=== PATIENT | male | born 1965 | race Caucasian/White ===

== ENCOUNTER → 2017-01-30 | Outpatient (CLI) | payer MEDICARE, OTHER ==
[~2017-01-30] MED LIST: ADVAIR 2501 DISK W/D PO; ALBUTEROL17 GM INH; ASPIRIN EC81 M1 PO; ASPIRIN PO; ATARAX PO; ATENOLOL PO; BACITRACIN15 GM OINT TOP; BUMEX1 MG PO; COUMADIN PO; COUMADIN6 MG PO; COUMADIN7.5 MG PO; DESYREL50 MG PO; DOXYCYCLINE HY100 M1 PO; GLUCOPHAGE500 M1 PO; LIPITOR PO; LISINOPRIL PO; LOPID600 MG PO; LOPRESSOR PO; LORTAB 7.5-5001 TAB PO; METFORMIN HCL500 M1 PO; MOBIC15 MG PO; MUCINEX DM1 TAB.SR . PO; MULTI-VITAMIN1 TAB PO; NEURONTIN100 MG PO; NEURONTIN300 MG PO; NITROGYLCERIN SUBLINGUAL; NITROSTAT0.4 MG SL; NO MEDICATIONS; NORCO 10-325 TA1 TAB PO; OMEPRAZOLE20 M1 PO; PAXIL PO; PHARMACY; PHENERGAN SUPP25 MG PR; PRILOSEC PO; PROMETHAZINE-D240 ML PO; REQUIP0.25 MG PO; ZESTRIL5 MG PO; ZOCOR20 MG PO
--- NOTE | ~2017-01-30 | CT71 ---
[facility] A Service [facility] RADIOLOGY TEXT RESULTS PATIENT: BRENT ARECHIGA LOCATION: [facility] : 61 UNIT #: [id number] AGE: [address]: SHAKILA MCKEON SEX: M ORDER DR: [id number] [place] [id number] O MR#: [id number] Acc #: [id number] NAME: BRENT ARECHIGA : 1965 SEX: M STUDY DATE/TIME: 01/30/2017 12:50 UNIT: [facility] ROOM: STUDY DESCRIPTION: CT Head Wo Contrast Attending Physician: Shakila Mckeon M.D. Referring Physician: Shakila Mckeon M.D. Ordering Physician: Geeta Sunshine M.D. Primary Care Physician: Geeta Sunshine M.D. MEDICAL IMAGING REPORT This report is preliminary unless electronic signature is present. EXAM CT scan of the head without contrast 01/30/2017 HISTORY Left sided headaches for 1 month that started when the patient stopped Warfarin. COMPARISON STUDIES 09/20/2005 TECHNIQUE Axial noncontrast images were obtained from the skull base to the vertex. This CT exam was performed with one or more of the following radiation dose reduction techniques: automatic exposure control, adjustment of mA and/or kV according to patient size, and iterative reconstruction. FINDINGS Ventricular size and configuration are normal. There is no evidence of acute infarct or hemorrhage. There are no extraaxial fluid collections. No mass lesion or mass effect is seen. There are no skull fractures. IMPRESSION Normal noncontrast head CT. Dictated by... Guillermo Acosta M.D. THIS IS AN ELECTRONICALLY VERIFIED REPORT Guillermo Acosta M.D. at 01/30/2017 4:54 PM SHIVA/heidi [facility] A Service [facility] RADIOLOGY TEXT RESULTS PATIENT: BRENT ARECHIGA LOCATION: [facility] : 61 UNIT #: [id number] AGE: [address]: SHAKILA MCKEON SEX: M ORDER DR: TD: 01/30/2017 16:23 JOB #: [id number] MEDICAL IMAGING REPORT
== END | disposition home or self-care (01) ==
LOC: SCT 12:12
DX: R51 Headache (principal)
CPT/HCPCS: 70450

== ENCOUNTER 2017-05-12 11:28 | Emergency (ER) | payer MEDICARE, OTHER ==
--- NOTE | ~2017-05-12 | CR72 ---
[facility] A Service of [facility] & [facility] RADIOLOGY TEXT RESULTS PATIENT: BRENT ARECHIGA LOCATION: [facility] : 61 UNIT #: [id number] AGE: [address]: Alisson Hobson MD SEX: M ORDER DR: [id number] [facility] [address] [place], [place] [address] [id number] E MR#: [id number] Acc #: [id number] NAME: BRENT ARECHIGA. : 1965 SEX: M STUDY DATE/TIME: 05/12/2017 12:14 UNIT: [facility] ROOM: STUDY DESCRIPTION: CR Chest Single View Portable Attending Physician: Alisson Hobson M.D. Ordering Physician: Alisson Hobson M.D. Primary Care Physician: Geeta Sunshine M.D. MEDICAL IMAGING REPORT This report is preliminary unless electronic signature is present EXAM Portable chest INDICATION Chest pain today, shortness of breath, defibrillator firing twice. COMPARISON 11/20/2015 FINDINGS There is abnormal rounded soft tissue attenuation in the right hilum concerning for a mass or lymphadenopathy. This is new since the study from 2014. Further evaluation with a contrast enhanced chest CT is recommended. Heart size is normal. ICD. Prior valve repair. IMPRESSION Abnormal study with abnormal rounded soft tissue density in the right hilum very concerning for underlying mass or lymphadenopathy. Further evaluation with chest CT with contrast is recommended. Dictated by... Lon Duckworth M.D. THIS IS AN ELECTRONICALLY VERIFIED REPORT Lon Duckworth M.D. at 05/12/2017 6:07 PM [place] TD: 05/12/2017 15:49 JOB #: [id number] MEDICAL IMAGING REPORT Page 1 of 1 COPY
--- NOTE | ~2017-05-12 | EKG ---
PATIENT: BRENT ARECHIGA UNIT #: [id number] Ventricular Rate: 100 BPM Atrial Rate: 100 BPM P-R Interval: 182 ms QRS Duration: 98 ms Q-T Interval: 374 ms QTC Calculation(Bezet): 482 ms P Marine: 69 degrees Calculated R Marine: 56 degrees Calculated T Marine: 96 degrees Diagnosis Line: Normal sinus rhythm Diagnosis Line: Consider prior Inferior infarct , age Diagnosis Line: undetermined Diagnosis Line: Poor R wave progression questionable lead position Diagnosis Line: or body habitus Diagnosis Line: Abnormal ECG Diagnosis Line: No previous ECGs available Diagnosis Line: Confirmed by SINGH JETER MD ([id number]) on Diagnosis Line: 05/12/2017 10:46:24 PM INTERPRETING MD: JASS
[2017-05-12 12:38] LABS: BASOPHIL# 0.1 X10e3 (0-0.3); BASOPHIL% 0.8 % (0-2.5); EOSINOPHIL# 0.8 X10e3 (0-0.7); EOSINOPHIL% 5.8 % (0.0-7.0); HEMATOCRIT 45.3 % (38.0-50.0); HEMOGLOBIN 14.4 gm/dL (13.0-16.0); LYMPHOCYTE% 21.9 % (17.0-45.0); MEAN CELL VOLUME 88.9 FL (83-96); MEAN CORPUSCULAR HEMOGLOBIN 28.2 PG (28-34); MEAN CORPUSCULAR HGB CONC 31.7 g/dL (30-36); MEAN PLATELET VOLUME 8.4 FL (6.5-11.5); MONOCYTE# 1.2 X10e3 (0-1.0); MONOCYTE% 8.6 % (3.0-12.0); NEUTROPHIL# 8.5 X10e3 (1.5-7.1); NEUTROPHIL% 62.9 % (40-75); PLATELET COUNT 324 X10e3 (140-420); RED CELL DISTRIBUTION WIDTH 15.2 % (11.0-15.5); WHITE BLOOD COUNT 13.5 X10e3 (4.0-10.5)
[2017-05-12 12:40] LABS: DIFF IND NO
[2017-05-12 13:15] LABS: ALBUMIN SERUM 3.7 g/dL (3.5-5.0); BILIRUBIN, DIRECT 0.1 mg/dL (0.0-0.2); BILIRUBIN,INDIRECT 0.7 mg/dL (0.0-0.9); BILIRUBIN,TOTAL 0.8 mg/dL (0.2-2.0); BUN/CREATININE RATIO 22.5; CALCIUM SERUM 9.1 mg/dL (8.4-10.2); CREATININE SERUM 0.8 mg/dL (0.6-1.4); POTASSIUM 4.2 mmol/L (3.5-5.1); PROTEIN TOTAL SERUM 7.9 g/dL (6.0-8.3)
[2017-05-12 13:50] LABS: POC - CKMB 1.8 ng/mL (0.0-7.9); POC - TROPONIN <0.05 ng/mL (<=0.05)
== END 2017-05-12 15:00 | disposition home or self-care (01) ==
LOC: CED 11:28
PROVIDERS: Student in an Organized Health Care Education/Training Program
DX: M54.32 Sciatica, left side (principal); G89.29 Other chronic pain; I13.2 Hypertensive heart and chronic kidney disease with heart failure and with stage 5 chronic kidney disease, or end stage renal disease; N18.6 End stage renal disease; I50.9 Heart failure, unspecified; F17.200 Nicotine dependence, unspecified, uncomplicated; Z95.0 Presence of cardiac pacemaker
CPT/HCPCS: 36415; 71010; 80048; 80076; 82553; 84484; 85025; 93005; 99284

== ENCOUNTER 2017-05-18 15:01 | Emergency (ER) | payer MEDICARE, OTHER ==
--- NOTE | ~2017-05-18 | CT4 ---
[facility] A Service of [facility] & [facility] RADIOLOGY TEXT RESULTS PATIENT: BRENT ARECHIGA LOCATION: [facility] : 61 UNIT #: [id number] AGE: [address]: Kodi Franco MD SEX: M ORDER DR: [id number] [facility] [address] [place], [place] [address] [id number] MR#: [id number] Acc #: [id number] NAME: BRENT ARECHIGA. : 1965 SEX: M STUDY DATE/TIME: 05/18/2017 17:05 UNIT: [facility] ROOM: STUDY DESCRIPTION: CT Abd and Pelv Wo Cont Attending Physician: Kodi Franco M.D. Ordering Physician: Kodi Franco M.D. Primary Care Physician: Geeta Sunshine M.D. MEDICAL IMAGING REPORT This report is preliminary unless electronic signature is present EXAM CT abdomen and pelvis without contrast 05/18/2017 HISTORY 51-year-old male with left flank pain and hematuria for [address] abdomen and pelvis 04/16/2013. TECHNIQUE Helical scan performed through the abdomen and pelvis without oral or IV contrast. Coronal and sagittal reformatted images. This CT examination was performed with one or more of the following radiation dose reduction techniques: automatic exposure control, adjustment of mA and/or kV according to patient size, and iterative reconstruction. FINDINGS Visualized lung bases are unremarkable. The liver, spleen, pancreas, gallbladder, and left adrenal gland are within normal limits. There is a 1.5 cm right adrenal nodule likely representing an adrenal adenoma. Horseshoe kidney is again noted. No obstructing urinary tract stones or hydronephrosis. Small focus of cortical scarring in the left renal moiety. Abdominal aorta normal in course and caliber with extensive atherosclerotic calcification. Small bowel is unremarkable without obstruction. Appendix is normal. Colon is unremarkable. No free fluid or free air. The urinary bladder is unremarkable. Prostate gland is mildly enlarged. No free pelvic fluid. Small fat-containing bilateral inguinal hernias. There has been interval development of an indeterminate age compression fracture involving the L4 vertebral body. This results in less than 50% STS. [facility] A Service of [facility] & [facility] RADIOLOGY TEXT RESULTS PATIENT: BRENT ARECHIGA LOCATION: [facility] #: [id number] : 61 UNIT #: [id number] AGE: [address]: Kodi Franco MD SEX: M ORDER DR: height loss. No bony retropulsion into the spinal canal. This is new since 04/16/2013. IMPRESSION 1. Horseshoe kidney. No obstructing urinary tract stones or hydronephrosis. 2. Normal appendix. 3. Incidental 1.5 cm right adrenal nodule, likely representing a benign adenoma. 4. Prostate gland enlargement and small fat-containing bilateral inguinal hernias. 5. Indeterminate age compression fracture of the L4 vertebral body. There is less than 50% vertebral body height loss and no evidence of bony retropulsion into the spinal canal. The fracture is new since the patient's previous CT exam from 04/16/2013. If clinical symptoms persist, then this can be further evaluated with non-emergent lumbar spine MRI to better assess the chronicity of the injury. Dictated by... Ayo Rinaldi M.D. THIS IS AN ELECTRONICALLY VERIFIED REPORT yAo Rinaldi M.D. at 05/20/2017 1:32 PM ANDREEA/simon TD: 05/19/2017 08:25 JOB #: [id number] MEDICAL IMAGING REPORT Page 1 of 1 COPY
[2017-05-18 16:38] LABS: BASOPHIL# 0.2 X10e3 (0-0.3); BASOPHIL% 1.3 % (0-2.5); EOSINOPHIL# 0.8 X10e3 (0-0.7); EOSINOPHIL% 5.4 % (0.0-7.0); HEMATOCRIT 45.5 % (38.0-50.0); HEMOGLOBIN 14.7 gm/dL (13.0-16.0); LYMPHOCYTE# 3.6 X10e3 (1.0-3.5); LYMPHOCYTE% 24.1 % (17.0-45.0); MEAN CELL VOLUME 87.1 FL (83-96); MEAN CORPUSCULAR HEMOGLOBIN 28.1 PG (28-34); MEAN CORPUSCULAR HGB CONC 32.2 g/dL (30-36); MEAN PLATELET VOLUME 8.4 FL (6.5-11.5); MONOCYTE# 1.3 X10e3 (0-1.0); MONOCYTE% 9.1 % (3.0-12.0); NEUTROPHIL# 8.9 X10e3 (1.5-7.1); NEUTROPHIL% 60.1 % (40-75); PLATELET COUNT 333 X10e3 (140-420); RED BLOOD COUNT 5.23 X10e (3.90-5.60); RED CELL DISTRIBUTION WIDTH 15.4 % (11.0-15.5); WHITE BLOOD COUNT 14.7 X10e3 (4.0-10.5)
[2017-05-18 16:50] LABS: DIFF IND NO
[2017-05-18 16:52] LABS: INR 3.3
[2017-05-18 16:56] LABS: PROTHROMBIN TIME (PATIENT) 35.5 SECONDS (10.0-11.7)
[2017-05-18 17:07] LABS: BUN/CREATININE RATIO 25.55; CALCIUM SERUM 9.3 mg/dL (8.4-10.2); CREATININE SERUM 0.9 mg/dL (0.6-1.4); GLOM FILT RATE Estimated 97.2 mL/min (>60); POTASSIUM 3.9 mmol/L (3.5-5.1)
== END 2017-05-18 18:50 | disposition home or self-care (01) ==
LOC: CED 15:01
PROVIDERS: Emergency Medicine
DX: M54.41 Lumbago with sciatica, right side (principal); I25.10 Atherosclerotic heart disease of native coronary artery without angina pectoris; I10 Essential (primary) hypertension; J44.9 Chronic obstructive pulmonary disease, unspecified; F17.200 Nicotine dependence, unspecified, uncomplicated
CPT/HCPCS: 36415; 74176; 80048; 85025; 85610; 99284